=== PATIENT | female | born 1985 | race Caucasian/White ===

== ENCOUNTER 2018-05-11 08:37 | Emergency (ER) | payer OTHER ==
[2018-05-11 09:24] LABS: Urine Blood NEGATIVE (NEG); Urine Glucose NEGATIVE (NEG); Urine Protein NEGATIVE (NEG); Urine Specific Gravity 1.015 (1.005-1.030); Urine pH 7.5 (5.0-7.0)
[2018-05-11 09:32] LABS: Urine Bacteria NONE SEEN /HPF (<20); Urine RBC NONE SEEN /HPF (NONE SEEN)
[2018-05-11 09:33] LABS: Urine Culture Reflex Order NOT NEEDED
[2018-05-11 09:45] LABS: Absolute Lymphocytes (CBC) 1.9 K/uL (0.7-4.9); Absolute Monocytes 0.4 K/uL (0.1-1.3); Absolute Neutrophil 3.5 K/uL (1.8-8.0); Basophils % 0.4 % (0-1.3); Eosinophils % 1.3 % (0-4.4); Hematocrit 40.3 % (36.0-45.0); Lymphocytes % 32.1 % (15.3-44.8); MCH 30.9 pg (27.0-35.0); MCV 89.3 fL (80-100); MPV 12.4 fL (7.6-11.3); Monocytes % 6.6 % (3.3-12.3); RBC Red Blood Cell Count 4.52 M/uL (3.86-4.86)
[2018-05-11 10:08] LABS: BUN Blood Urea Nitrogen 9 mg/dL (7-18); Bicarbonate 32 mmol/L (21-32); Glucose Level 92 mg/dL (74-106); Potassium 3.9 mmol/L (3.5-5.1); Sodium Level 141 mmol/L (136-145)
--- NOTE | 2018-05-11 10:59 | RAD REPORT ---
EXAM DESCRIPTION: CTAbdomen Pelvis W Contrast - 05/11/2018 10:38 am CLINICAL HISTORY: Abdominal pain. ABD PAIN COMPARISON: No comparisons TECHNIQUE: Biphasic CT imaging of the abdomen and pelvis was performed with 100 ml non-ionic IV cont rast. All CT scans are performed using dose optimization technique as appropriate and may include automated exposure control or mA/KV adjustment according to patient size. FINDINGS: The lung bases are clear. The liver demonstrates no focal mass or biliary dilatation. The spleen is normal in size. The pancrea s, adrenal glands have a normal appearance. A small amount of fluid is seen in Aviles's pouch. No h ydronephrosis of either kidney. No focal renal mass or perinephric fluid. No bowel obstruction, free air or abscess. Moderate to significant pelvic free fluid is seen. Some of the fluid particularly in the left adnexal region has a slightly dense appearance. A small amount of the fluid is seen to extend anteriorly and is seen in both lower quadrants of the abdomen. This may indicate recent cyst rupture or be related to pelvic infection/inflammation. The appendix is normal. No evidence of significant lymphadenopathy. No suspicious bony findings. IMPRESSION: Moderate to significant pelvic free fluid is noted. Areas of increased density are seen along the left adnexal region within the fluid. This may indicate recent cyst rupture or be secondary to pelvic inflammation/infection.
--- NOTE | 2018-05-11 12:55 | RAD REPORT ---
EXAM DESCRIPTION: US - Transvaginal Study Probe - 05/11/2018 12:13 pm CLINICAL HISTORY: ABD PAIN Pelvic pain. COMPARISON: Abdomen Pelvis W Contrast dated 05/11/2018 FINDINGS: The uterus is normal in size, shape and echotexture. The uterus measures 8.8 x 6.2 x 4.2 c m. The endometrial stripe measures 10 mm. Moderate free fluid is seen in the pelvis. The left ovary appears enlarged and heterogenous with a pr ominent echogenic appearance measuring 5.0 x 5.0 cm. Blood flow to the left ovary was seen utilizing Doppler technique. The right ovary demonstrates normal size measuring 2.3 x 2.0 cm with normal blood flow present. IMPRESSION: Enlarged, echogenic appearance to the left ovary is noted measuring 5.0 x 5.0 cm.During the ultrasound study, blood flow was seen to the left ovary, however intermittent torsion remains a p ossibility. Physical exam followup directed towards the left adnexa/ovary is suggested. Moderate free fluid in the pelvis.
--- NOTE | 2018-05-11 14:06 | ER ---
Nurse's Notes [facility] Name: Sue Lopez Age: 32 yrs Sex: Female : 1985 Arrival Date: 05/11/2018 Time: 08:41 Bed 13 Private MD: None, None Diagnosis: Abdominal and pelvic pain;Ruptured Ovarian Cyst Presentation: 05/11 08:46 Presenting complaint: Patient states: Pelvic pain and lower abd cramping that started sg this morning, denies N/V/D/Fever, denies urinary symptoms or vaginal bleeding/discharge at this time. Transition of care: patient was not received from another setting of care. Onset of symptoms was May 11, 2018. Risk Assessment: Do you want to hurt yourself or someone else? Patient reports no desire to harm self or others. Initial Sepsis Screen: Does the patient meet any 2 criteria? No. Patient's initial sepsis screen is negative. Does the patient have a suspected source of infection? No. Patient's initial sepsis screen is negative. Care prior to arrival: None. 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 - Social history:: Smoking status: Patient/guardian denies using tobacco. - Ebola Screening: : Patient negative for fever greater than or equal to 101.5 degrees Fahrenheit, and additional compatible Ebola Virus Disease symptoms Patient denies exposure to infectious person Patient denies travel to an Ebola-affected area in the 21 days before illness onset No symptoms or risks identified at this time. Screenin:58 Abuse screen: Denies threats or abuse. Denies injuries from another. Nutritional ph screening: No deficits noted. Tuberculosis screening: No symptoms or risk factors identified. Fall Risk None identified. Assessment: 09:00 General: Appears in no apparent distress. comfortable, Behavior is calm, cooperative, ph appropriate for age, Denies fever, feeling ill. Pain: Complains of pain in suprapubic area Quality of pain is described as crampy, sharp. Neuro: Level of Consciousness is awake, alert, obeys commands, Oriented to person, place, time, situation. Cardiovascular: Capillary refill < 3 seconds in bilateral fingers Patient's skin is warm and dry. Respiratory: Airway is patent Respiratory effort is even, unlabored. GI: Bowel sounds present X 4 quads. Abd is soft X 4 quads Abdomen is tender to palpation in suprapubic area Reports lower abdominal pain, Patient currently denies constipation, diarrhea, nausea, vomiting. : Reports cramping, in bilateral lower quadrant(s) Denies burning with urination, discharge, urinary frequency, vaginal bleeding. Derm: Skin is intact, is healthy with good turgor, Skin is pink, warm \\T\\ dry. Musculoskeletal: Circulation, motion, and sensation intact. Range of motion: intact in all extremities. 10:30 Reassessment: Patient appears in no apparent distress at this time. Patient and/or ph family updated on plan of care and expected duration. Pain level reassessed. Patient is alert, oriented x 3, equal unlabored respirations, skin warm/dry/pink. Pt resting quietly, denies nausea at this time, rates pain 2/10, states, " It's not too bad unless I get up and walk." Awaiting CT and lab results, VSS, will continue to monitor. 11:30 Reassessment: Pt in radiology for US. ph 12:38 Reassessment: Patient appears in no apparent distress at this time. Patient and/or ph family updated on plan of care and expected duration. Pain level reassessed. Patient is alert, oriented x 3, equal unlabored respirations, skin warm/dry/pink. Pt resting quietly, awaiting US results. 13:30 Reassessment: Patient appears in no apparent distress at this time. No changes from ph previously documented assessment. Patient and/or family updated on plan of care and expected duration. Pain level reassessed. Patient is alert, oriented x 3, equal unlabored respirations, skin warm/dry/pink. Vital Signs: 08:44 BP 119 / 65; Pulse 78; Resp 19 S; Temp 98.0(TE); Pulse Ox 97% on R/A; Weight 97.52 kg ph (R); Pain 6/10; 10:00 BP 108 / 74; Pulse 72; Resp 18; Pulse Ox 99% on R/A; Pain 3/10; ph 11:00 BP 112 / 51; Pulse 62; Resp 16; Pulse Ox 99% on R/A; ph 12:30 BP 111 / 65; Pulse 66; Resp 16; Pulse Ox 98% on R/A; ph 13:25 BP 127 / 67; Pulse 66; Resp 18; Pulse Ox 100% on R/A; ph 14:00 BP 113 / 69; Pulse 67; Resp 18; Temp 97.6; Pulse Ox 100% on R/A; ph ED Course: 08:41 Patient arrived in ED. sb2 08:41 None, None is Private Physician. sb2 08:42 Donald Mcdermott MD is Attending Physician. kdr 08:43 Kathleen Stone, RN is Primary Nurse. ph 08:46 Arm band placed on. sg 08:47 Triage completed. sg 08:58 Patient has correct armband on for positive identification. Placed in gown. Bed in low ph position. Call light in reach. Side rails up X 1. Pulse ox on. NIBP on. Warm blanket given. 09:03 Urine collected: clean catch specimen, clear. ss 09:20 Inserted saline lock: 20 gauge in right antecubital area, using aseptic technique. ag Blood collected. 10:38 CT Abd/Pelvis - W/Contrast In Process Unspecified. EDMS 11:53 US Transvaginal Study (Probe) In Process Unspecified. EDMS 12:08 Ultrasound completed. Patient tolerated well. Patient moved back from ultrasound. aa4 13:01 No provider procedures requiring assistance completed. ph 14:19 IV discontinued, intact, bleeding controlled, No redness/swelling at site. Pressure ph dressing applied. Administered Medications: No medications were administered Outcome: 14:05 Discharge ordered by . kdr 14:19 Patient left the ED. ph 14:19 Discharged to home ambulatory. ph 14:19 Condition: good 14:19 Discharge instructions given to patient, Instructed on discharge instructions, follow up and referral plans. Demonstrated understanding of instructions, follow-up care. Signatures: Dispatcher [employer] Gelacio Tinajero, RN RN sg Donald Mcdermott MD MD kdr Ines Temple aa4 Darcie Cm RN RN Kenya Lagos Kathleen Stone RN RN Susannah Gomez sb2 Corrections: (The following items were deleted from the chart) 08:59 08:46 EKG completed in triage. Results shown to MD. adames ph 08:59 08:46 EKG completed in triage. Results shown to MD. adames ph 17:21 08:44 Pulse 78bpm; Resp 19bpm; Spontaneous; Pulse Ox 97% RA; Temp 98.0F Temporal; 97.52 ph kg Reported; Pain 6/10; sg 17:23 14:01 BP 127 / 67; Pulse 66bpm; Resp 18bpm; Pulse Ox 100% RA; ag ph
--- NOTE | 2018-05-11 14:06 | EDPHYS ---
Physician Documentation [facility] Name: Sue Lopez Age: 32 yrs Sex: Female : 1985 Arrival Date: 05/11/2018 Time: 08:41 Bed 13 Private MD: None, None ED Physician Donald Mcdermott HPI: 05/11 10:06 This 32 yrs old Female presents to ER via Ambulatory with complaints of kdr Abdominal Pain. 10:06 The patient presents with abdominal pain in the lower abdomen, right lower quadrant. kdr Onset: The symptoms/episode began/occurred suddenly, this morning. The symptoms do not radiate. Associated signs and symptoms: none. The symptoms are described as achy, dull, vague. Modifying factors: The symptoms are alleviated by remaining still, the symptoms are aggravated by. Severity of pain: At its worst the pain was moderate in the emergency department the pain is unchanged. The patient has not experienced similar symptoms in the past. The patient has not recently seen a physician. 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 - Social history:: Smoking status: Patient/guardian denies using tobacco. - Ebola Screening: : Patient negative for fever greater than or equal to 101.5 degrees Fahrenheit, and additional compatible Ebola Virus Disease symptoms Patient denies exposure to infectious person Patient denies travel to an Ebola-affected area in the 21 days before illness onset No symptoms or risks identified at this time. ROS: 10:06 Constitutional: Negative for fever, chills, and weight loss, Eyes: Negative for injury, kdr pain, redness, and discharge, ENT: Negative for injury, pain, and discharge, Neck: Negative for injury, pain, and swelling, Cardiovascular: Negative for chest pain, palpitations, and edema, Respiratory: Negative for shortness of breath, cough, wheezing, and pleuritic chest pain, Back: Negative for injury and pain, : Negative for injury, bleeding, discharge, and swelling, MS/Extremity: Negative for injury and deformity, Skin: Negative for injury, rash, and discoloration, Neuro: Negative for headache, weakness, numbness, tingling, and seizure activity. Psych: Negative for depression, anxiety, suicide ideation, homicidal ideation, and hallucinations, Allergy/Immunology: Negative for hives, rash, and allergies, Endocrine: Negative for neck swelling, polydipsia, polyuria, polyphagia, and marked weight changes, Hematologic/Lymphatic: Negative for swollen nodes, abnormal bleeding, and unusual bruising. 10:06 Abdomen/GI: Positive for nausea, Negative for vomiting, diarrhea, constipation, abdominal cramps, abdominal distension, anorexia, dysphagia, hematemesis, black/tarry stool. Exam: 10:06 Constitutional: This is a well developed, well nourished patient who is awake, alert, kdr and in no acute distress. Head/Face: Normocephalic, atraumatic. Eyes: Pupils equal round and reactive to light, extra-ocular motions intact. Lids and lashes normal. Conjunctiva and sclera are non-icteric and not injected. Cornea within normal limits. Periorbital areas with no swelling, redness, or edema. Neck: Trachea midline, no thyromegaly or masses palpated, and no cervical lymphadenopathy. Supple, full range of motion without nuchal rigidity, or vertebral point tenderness. No Meningismus. Chest/axilla: Normal chest wall appearance and motion. Nontender with no deformity. No lesions are appreciated. Cardiovascular: Regular rate and rhythm with a normal S1 and S2. No gallops, murmurs, or rubs. Normal PMI, no JVD. No pulse deficits. Respiratory: Lungs have equal breath sounds bilaterally, clear to auscultation and percussion. No rales, rhonchi or wheezes noted. No increased work of breathing, no retractions or nasal flaring. Back: No spinal tenderness. No costovertebral tenderness. Full range of motion. Skin: Warm, dry with normal turgor. Normal color with no rashes, no lesions, and no evidence of cellulitis. MS/ Extremity: Pulses equal, no cyanosis. Neurovascular intact. Full, normal range of motion. Neuro: Awake and alert, GCS 15, oriented to person, place, time, and situation. Cranial nerves II-XII grossly intact. Motor strength 5/5 in all extremities. Sensory grossly intact. Cerebellar exam normal. Normal gait. Psych: Awake, alert, with orientation to person, place and time. Behavior, mood, and affect are within normal limits. 10:06 Abdomen/GI: Inspection: abdomen appears normal, Bowel sounds: active, Palpation: soft, mild abdominal tenderness, mass, is not appreciated, rebound tenderness, is not appreciated, no appreciated organomegaly. Vital Signs: 08:44 BP 119 / 65; Pulse 78; Resp 19 S; Temp 98.0(TE); Pulse Ox 97% on R/A; Weight 97.52 kg ph (R); Pain 6/10; 10:00 BP 108 / 74; Pulse 72; Resp 18; Pulse Ox 99% on R/A; Pain 3/10; ph 11:00 BP 112 / 51; Pulse 62; Resp 16; Pulse Ox 99% on R/A; ph 12:30 BP 111 / 65; Pulse 66; Resp 16; Pulse Ox 98% on R/A; ph 13:25 BP 127 / 67; Pulse 66; Resp 18; Pulse Ox 100% on R/A; ph 14:00 BP 113 / 69; Pulse 67; Resp 18; Temp 97.6; Pulse Ox 100% on R/A; ph MDM: 10:06 Data reviewed: vital signs, nurses notes. kdr 14:05 Patient medically screened. [facility] 05/11 09:06 Order name: Basic Metabolic Panel; Complete Time: 10:37 [facility] 05/11 09:06 Order name: CBC with Diff; Complete Time: 10:06 [facility] 05/11 09:06 Order name: Creatinine for Radiology; Complete Time: 10:06 [facility] 05/11 09:06 Order name: Urine Microscopic Only; Complete Time: 10:06 [facility] 05/11 09:10 Order name: Urine Dipstick--Ancillary (enter results); Complete Time: 10:06 [facility] 05/11 09:10 Order name: Urine --Ancillary (enter results); Complete Time: 10:06 [facility] 05/11 09:06 Order name: IV Saline Lock; Complete Time: 09:25 [facility] 05/11 09:06 Order name: Labs collected and sent; Complete Time: 09:25 [facility] 05/11 09:06 Order name: Urine Dipstick-Ancillary (obtain specimen); Complete Time: 09:25 [facility] 05/11 09:06 Order name: Urine Test (obtain specimen); Complete Time: 09:25 [facility] 05/11 09:06 Order name: CT Abd/Pelvis - W/Contrast; Complete Time: 11:05 kdr 05/11 11:07 Order name: US Transvaginal Study (Probe); Complete Time: 13:31 kdr Administered Medications: No medications were administered Disposition: 05/11/18 14:05 Discharged to Home. Impression: Abdominal and pelvic pain, Ruptured Ovarian Cyst. - Condition is Stable. - Discharge Instructions: Abdominal Pain, Adult, [id number], Ovarian Cyst, [id number]. - Prescriptions for Tramadol 50 mg Oral Tablet - take 1 tablet by ORAL route every 8 hours as needed; 12 tablet. - Medication Reconciliation Form, Thank You Letter form. - Follow up: Private Physician; When: 2 - 3 days; Reason: If symptoms return, Further diagnostic work-up, Recheck today's complaints, Continuance of care, Re-evaluation by your physician. - Problem is new. - Symptoms have improved. Signatures: Dispatcher [employer] EDMS Gelacio Leblanc RN RN Donald Mcdermott MD MD kdr Kathleen Stone RN RN ph Corrections: (The following items were deleted from the chart) 14:19 14:05 05/11/2018 14:05 Discharged to Home. Impression: Abdominal and pelvic pain; ph Ruptured Ovarian Cyst. Condition is Stable. Forms are Medication Reconciliation Form, Thank You Letter, Antibiotic Education, Prescription Opioid Use. Follow up: Private Physician; When: 2 - 3 days; Reason: If symptoms return, Further diagnostic work-up, Recheck today's complaints, Continuance of care, Re-evaluation by your physician. Problem is new. Symptoms have improved. kdr
== END 2018-05-11 14:19 | disposition home or self-care (01) ==
LOC: ER 08:37
DX: N83.299 Other ovarian cyst, unspecified side (principal)
CPT/HCPCS: 36415; 74177; 76830; 80048; 81003; 81015; 81025; 85025; 99284; Q9967

== ENCOUNTER 2019-02-02 00:43 | Inpatient (IN) | payer OTHER ==
[2019-02-02] MEDS ORDERED: Ringers Lactate 1,000 ML IV PRN (01:43)
[2019-02-02] MEDS ORDERED: BUTORPHANOL 1 MG/ML INJ IV ONE (01:43)
[2019-02-02] MEDS ORDERED: PROMETHAZINE 25 MG/ML VIAL IV ONE (01:46)
[2019-02-02] MEDS ORDERED: OXYTOCIN/LR 20 UNITS/1,000 ML BAG IV SCH (02:00)
[2019-02-02] MEDS ORDERED: Ringers Lactate 1,000 ML IV SCH (02:00)
[2019-02-02 02:15] LABS: Absolute Lymphocytes (CBC) 3.5 K/uL (0.7-4.9); Absolute Monocytes 0.9 K/uL (0.1-1.3); Absolute Neutrophil 7.6 K/uL (1.8-8.0); Basophils % 0.3 % (0-1.3); Eosinophils % 1.9 % (0-4.4); Hematocrit 40.6 % (36.0-45.0); Lymphocytes % 28.7 % (15.3-44.8); MPV 11.9 fL (7.6-11.3); RBC Red Blood Cell Count 4.41 M/uL (3.86-4.86)
[2019-02-02 02:24] LABS: Urine Appearance CLEAR; Urine Bilirubin NEGATIVE (NEG); Urine Blood NEGATIVE (NEG); Urine Color YELLOW; Urine Glucose NEGATIVE (NEG); Urine Protein NEGATIVE (NEG); Urine Specific Gravity 1.015 (1.005-1.030); Urine Urobilinogen 0.2 mg/dL (0.2-1.0)
[2019-02-02 02:33] LABS: Urine Microscopic Reflex NO UMIC
[2019-02-02] MEDS ORDERED: ROPIVACAINE HCL 100 ML IV PRN (02:39)
[2019-02-02] MEDS ORDERED: FENTANYL CITR 100 MCG/2 ML IV ONE (02:39)
[2019-02-02] MEDS ORDERED: ROPIVACAINE HCL 0.2% 20ML AMP SQ ONE (02:47)
[2019-02-02] MEDS ORDERED: FENTANYL CITR 100 MCG/2 ML ONE (03:06)
[2019-02-02 04:05] VITALS: BMI 33.1
--- NOTE | 2019-02-02 04:05 | PREOPHP ---
Date of Admission: 02/02/2019 History Of Present Illness: Ms. Lopez is a 33-year-old female, 3, para 2-0- 0-2, followed by me during this with history of ITP and false-positive RPRs. She is now at 40+ weeks' gestation, is admitted in early labor. Past Medical History: Please see record. Family History: Please see record. Review of Systems: She denies recent cough, cold, fever, or chills. No recent nausea, vomiting. She denies any breast lumps. has been active. She denies any urine symptoms or recurring bowel issues. Physical Examination: General: Reveals a pleasant female in mild discomfort. Neck: Supple without adenopathy or thyromegaly. Lungs: Clear. Cardiac: Regular rate and rhythm without murmurs. Breasts: Not examined. Abdomen: Estimated weight 7+ to 8 pounds. Pelvic: Cervix noted to be 4 cm on admission. She was 3 cm in my office earlier today. Vertex pres entation at 0 station. Extremities: No cyanosis or clubbing. There is trace to 1+ lower extremity edema. Impression: 40+ week , labor. Plan: The patient is admitted for delivery. MAXIMINO/CAMILA Voice ID: [id number]
[2019-02-02] MEDS ORDERED: LIDOCAINE 1% 20 ML MDV ONE (05:04)
[2019-02-02] MEDS ORDERED: METHYLERGONOVINE 0.2MG/ML AMP IM PRN (05:08)
[2019-02-02] MEDS ORDERED: CARBOPROST TROME 250 MCG/ML IM PRN (05:08)
[2019-02-02] MEDS ORDERED: METHYLERGONOVINE 0.2 MG TAB PO PRN (05:08)
--- NOTE | 2019-02-02 05:14 | P.BOP ---
Preoperative diagnosis: 40+ wks , active labor Postoperative diagnosis: same, SCVD Primary procedure: SCVD viable male Secondary procedure: repair of bilateral periurethral lacerations Estimated blood loss: 250ml Anesthesia: epidural Complications: None Transferred to: Other ([id number]) Condition: Good
[2019-02-02] MEDS ORDERED: OXYTOCIN/LR 20 UNIT/1,000 ML BAG IV SCH (06:00)
[2019-02-02] MEDS: IBUPROFEN 200 MG TAB PO PRN ×2 (07:15→15:34)
[2019-02-02] MEDS: ACETAMINOPHEN 500 MG TAB PO PRN ×2 (11:29→20:11)
[2019-02-02 20:44] LABS: RPR (Rapid Plasma Reagin) REACTIVE (NON-REACT)
--- NOTE | 2019-02-02 20:56 | OP ---
Surgeon: Wai Redding MD Ms. Lopez is a 33-year-old, female 3, para 2-0-0-2 at 40+ weeks gestation, a dmitted in early labor. Cervix noted to be 4 cm dilated. After placement of epidural catheter, and Pitocin augmentation of labor, she proceeded rapidly to complete cervical dilatation. She had a firs t stage of labor 5 hours and 6 minutes, second stage of labor 16 minutes. She delivered by spontaneo us controlled vaginal delivery an 8-pound 2-ounce male infant, 8 and 9 with small bilateral per iurethral lacerations. After delayed cord clamping, the cord was clamped, cut, and the placed on mother's upper abdomen. Cord blood was obtained. The placenta was spontaneously expelled and ap peared to be intact. Intrauterine examination revealed no retained placental fragments. She receive d 1 mg of Stadol, 12.5 mg of Phenergan IV x1 for analgesia prior to placement of epidural catheter. Estimated total blood loss was less than 250 cc. Periurethral lacerations were repaired with local i nfiltration of Xylocaine and 3-0 Vicryl suture. MAXIMINO/EMMETTL Voice ID: [id number] Report ID: [id number]
[2019-02-03] MEDS: IBUPROFEN 200 MG TAB PO PRN (04:55)
[2019-02-03 08:00] VITALS: BP 106/58; TEMP 97.8
--- NOTE | 2019-02-04 00:36 | DS ---
Date of Discharge: 02/03/2019 Final Hospital Discharge Diagnoses: A 40+ week , delivered. Complications: None. Procedures: Placement of epidural catheter, Pitocin augmentation of labor, spontaneous controlled va ginal delivery of viable male infant, repair of bilateral periurethral first-degree lacerations. Hospital Course: The patient is a 33-year-old, , female, 3, para 2-0-0-2, a t 40+ weeks' gestation, admitted in labor. She delivered an 8-pound and 2-ounce male , 8 and 9 without complications, was dismissed on the first day, ambulatory, on a select diet with routine post vaginal delivery activity restrictions, to be seen back in my office in 1 week and 6 weeks. Lab work included an admission hemoglobin and hematocrit of 13.8 and 40.6, dismissal hemat ocrit 36.9. She had a history of ITP in the past. On admission, platelet count was 113,000. She al so had a history of positive RPRs in the past, but FTA-ABSs have all been negative. She is dismissed to continue taking her iron and vitamins, to be seen back in my office in 1 week. MAXIMINO/CAMILA Voice ID: [id number] Report ID: [id number]
[2019-02-06 03:06] LABS: HBsAG Nonreactive (Nonreactive)
== END 2019-02-03 10:45 | disposition home or self-care (01) | DRG 807 ==
LOC: L&D 00:43 → 2ND-WC 01:41
PROVIDERS: ADMIT Specialist; ATTEND Specialist
PROC: 10E0XZZ Delivery of Products of Conception, External Approach (ICD-10-PCS; principal; 2019-02-02)
PROC: 0HQ9XZZ Repair Perineum Skin, External Approach (ICD-10-PCS; 2019-02-02)
DX: O71.82 Other specified trauma to perineum and vulva (principal); Z37.0 Single live birth; Z3A.40 40 weeks gestation of pregnancy
CPT/HCPCS: 36415; 81003; 85014; 85025; 86592; 86593; 86780; 86901; 87340; J0595; J2550; J2590; J2795; J3010